=== PATIENT | male | born 1980 | race American Indian/Alaskan Native ===

== ENCOUNTER 2018-06-17 06:47 | Day surgery (SDC) | payer OTHER ==
[~2018-06-17 06:47] MED LIST: Lactated Ringers 1,000 ML IV SCH
[2018-06-17] MEDS ORDERED: Midazolam 1 MG/ML 2 ML SDV ONE (07:26)
[2018-06-17] MEDS ORDERED: Lidocaine 2% 5 ML SDV ONE (07:26)
[2018-06-17] MEDS ORDERED: fentaNYL 100 MCG/2 ML SDV ONE (07:26)
[2018-06-17] MEDS ORDERED: Propofol 200 MG/20 ML SDV ONE ×4 (07:26→08:49)
--- NOTE | 2018-06-17 07:49 | PCM.PREANE ---
Preanesthetic Assessment - Procedure Proposed Procedure: EGD and Colonoscopy - Anesthesia/Transfusion/Family Hx Anesthesia History: Prior Anesthesia Without Reaction Transfusion History: No Prior Transfusion(s) Intubation History: Unknown - Review of Systems General: No Symptoms Pulmonary: No Symptoms Cardiovascular: No Symptoms Gastrointestinal: Diarrhea - Physical Assessment NPO Status Date: 06/16/18 NPO Status Time: 22:00 O2 Sat by Pulse Oximetry: 94 Respiratory Rate: 16 Vital Signs: Last Vital Signs Temp 97.2 F 06/17/18 06:59 Pulse 63 06/17/18 06:59 Resp 16 06/17/18 06:59 BP 123/84 06/17/18 06:59 Pulse Ox 94 L 06/17/18 06:59 Height: 6 ft Weight: 216 lb ASA Class: 2 Mental Status: Alert & Oriented x3 Airway Class: Mallampati = 2 Dentition: Reports: Normal Dentition Thyro-Mental Finger Breadths: 3 Mouth Opening Finger Breadths: 3 ROM/Head Extension: Full Lungs: Clear to Auscultation, Normal Respiratory Effort Cardiovascular: Regular Rate, Regular Rhythm, No Murmurs - Allergies Allergies/Adverse Reactions: Allergies Allergy/AdvReac Type Severity Reaction Status Date / Time No Known Allergies Allergy Verified 06/13/18 10:49 - Blood Blood Available: No Product(s) Available: None - Anesthesia Plan Pre-Op Medication Ordered: None - Acknowledgements Anesthesia Type Planned: MAC Pt an Appropriate Candidate for the Planned Anesthesia: Yes Alternatives and Risks of Anesthesia Discussed w Pt/Guardian: Yes Pt/Guardian Understands and Agrees with Anesthesia Plan: Yes PreAnesthesia Questionnaire Gastrointestinal History: Reports: Chronic Diarrhea, Diverticulosis Musculoskeletal History: Reports: Fracture Other Musculoskeletal History: hx fx right hand - Past Surgical History GI Surgical History: Reports: Colonoscopy Male Surgical History: Reports: Other (See Below) Other Male Surgeries/Procedures: Cystoscopy Musculoskeletal Surgical History: Reports: ORIF Other Musculoskeletal Surgeries/Procedures:: right hand- hardware removed - SUBSTANCE USE Smoking Status *Q: Current Every Day Smoker Tobacco Use Within Last Twelve Months: Cigarettes Recreational Drug Use History: No - HOME MEDS Home Medications: Home Meds L.acidoph,Paracasei, B.lactis [Probiotic] 1 cap PO DAILY 06/13/18 [History] - CURRENT (IN HOUSE) MEDS Current Meds: Current Medications Lactated Ringer's (Ringers, Lactated) 1,000 mls @ 125 mls/hr IV ASDIRECTED MATT Last Admin: 06/17/18 07:06 Dose: 125 mls/hr Discontinued Medications Fentanyl (Sublimaze) Confirm Administered Dose 100 mcg .ROUTE .STK-MED ONE Stop: 06/17/18 07:27 Lidocaine (Xylocaine-Mpf 2%) Confirm Administered Dose 5 ml .ROUTE .STK-MED ONE Stop: 06/17/18 07:27 Midazolam HCl (Versed 1 Mg/Ml) Confirm Administered Dose 2 mg .ROUTE .STK-MED ONE Stop: 06/17/18 07:27 Propofol (Diprivan 20 Ml) Confirm Administered Dose 400 mg .ROUTE .STK-MED ONE Stop: 06/17/18 07:27
[2018-06-17] MEDS ORDERED: Sodium Chloride 0.9% 10 ML Syringe FLUSH PRN (09:06)
[2018-06-17] MEDS ORDERED: Ondansetron 4 MG/2 ML SDV IVPUSH PRN (09:06)
[2018-06-17] MEDS ORDERED: Sodium Chloride 0.9% 2.5 ML Syringe FLUSH PRN (09:06)
--- NOTE | 2018-06-17 09:13 | PCM.OPNOTE ---
- General Post-Op/Procedure Note Date of Surgery/Procedure: 06/17/18 Operative Procedure(s): Esophagogastroduodenoscopy with biopsy. Colonoscopy with cold rectal polypectomy. Pre Op Diagnosis: Progressive heartburn. Unintentional weight loss. Change in bowel habits. Past medical history of colitis. Post-Op Diagnosis: Mild chronic gastritis. Hiatal hernia. Rectal polyp. Anesthesia Technique: MAC (ASA II) Primary Surgeon: Vimal Britton Animal Chiropractor: Juan José Knox Condition: Good Free Text/Narrative:: DICTATION [id number] CPT CODE 66778/11702
[2018-06-17 09:54] VITALS: BP 118/85
--- NOTE | 2018-06-17 10:16 | PCM.POSTAN ---
POST ANESTHESIA ASSESSMENT - MENTAL STATUS Mental Status: Alert, Oriented - RESPIRATORY Respiratory Status: Respiratory Rate WNL, Airway Patent, O2 Saturation Stable - CARDIOVASCULAR CV Status: Pulse Rate WNL, Blood Pressure Stable - GASTROINTESTINAL GI Status: No Symptoms - POST OP HYDRATION Hydration Status: Adequate & Stable
--- NOTE | 2018-06-17 10:21 | PCM48HPAN ---
Post Anesthesia Note - EVALUATION WITHIN 48HRS OF ANESTHETIC Vital Signs in Normal Range: Yes Patient Participated in Evaluation: Yes Respiratory Function Stable: Yes Airway Patent: Yes Cardiovascular Function Stable: Yes Hydration Status Stable: Yes Pain Control Satisfactory: Yes Nausea and Vomiting Control Satisfactory: Yes Mental Status Recovered: Yes Resp Rate: 16 - COMMENTS/OBSERVATIONS Free Text/Narrative:: Post anesthesia assessment was done at 0930 and patient seen before leaving facility.
--- NOTE | 2018-06-18 08:07 | OR ---
SURGEON: Vimal Britton M.D. DATE OF PROCEDURE: 06/17/2018 OPEARTION PERFORMED: Colonoscopy with cold rectal polypectomy. PATTERN CUTTER: Dr. Hancock. ANESTHESIA: MAC. ASA CLASSIFICATION: II. PREOPERATIVE DIAGNOSIS: Change in bowel habits with past medical history of colitis and with recent unintentional weight loss. POSTOPERATIVE DIAGNOSIS: No evidence of inflammatory change. No evidence of diverticulosis. Rectal polyp. DESCRIPTION OF PROCEDURE: The patient was again maintained in the left lateral decubitus position. The colonoscope was inserted into the rectum and advanced without difficulty to the cecum where the colonoscope was retroflexed to visualize the ascending colon from below. The colonoscope was then straightened and slowly withdrawn. The cecum, ascending colon, hepatic flexure, transverse colon, splenic flexure, and descending colon were very well visualized. Sigmoid colon was also very well visualized. I did not see any diverticulosis in this gentleman despite his previous diagnosis, which I believe was a presumptive diagnosis of diverticulitis. No polyps were encountered in the sigmoid colon. Once the colonoscope was withdrawn to the rectum, 1 small polyp was encountered in the rectum. This was removed with the cold biopsy forceps. The colonoscope was retroflexed to view the anal orifice from above and again, no tumors or polyps were seen. There were no acute hemorrhoidal changes. The colonoscope was then straightened, the rectum aspirated, and the colonoscope removed. BARBARA RIDDLE /[id number] TATO
--- NOTE | 2018-06-18 08:10 | OR ---
SURGEON: Vimal Britton M.D. DATE OF PROCEDURE: 06/17/2018 OPERATION PERFORMED: Esophagogastroduodenoscopy with biopsy. [employer] SENIOR OFFICER: Dr. Hancock, PGY2 PREOPERATIVE DIAGNOSIS: Progressive heartburn, nausea, vomiting, and unintentional weight loss. POSTOPERATIVE DIAGNOSIS: Mild chronic gastritis. DESCRIPTION OF PROCEDURE: The patient was taken to the endoscopy room and positioned on the endoscopy table in the left lateral decubitus position. Time-out was called for appropriate identification of the patient and procedure. Monitored anesthesia care was provided. The bite block was placed between the patient's teeth. The gastroscope was inserted into the bite block and advanced without difficulty through the mouth into the esophagus and subsequently through the stomach, into the duodenum where examination was carried out in a retrograde fashion. The duodenum shows no acute inflammatory changes or ulcerations. The stomach does show mild chronic gastritis. No acute ulcerations were noted. The gastroscope was retroflexed to visualize the proximal stomach. No tumors or polyps were seen and there were no acute inflammatory changes. The patient was noted to have a hiatal hernia. The GE junction was well defined and shows no acute inflammatory changes. The esophagus demonstrates fair contractility. No mid or proximal lesions were identified. The vocal cords had been visualized as the scope was inserted and noted to move symmetrically. No vocal cord lesions were identified. The gastroscope was then removed with the patient having tolerated this portion of the procedure well. Following colonoscopy, he was taken to recovery room in stable condition. BARBARA / VENKATESH /[id number]
== END 2018-06-17 10:01 | disposition home or self-care (01) ==
LOC: MW.SDS 06:47
PROVIDERS: ATTEND Surgery
DX: K29.50 Unspecified chronic gastritis without bleeding (principal); K44.9 Diaphragmatic hernia without obstruction or gangrene; R63.4 Abnormal weight loss; R19.4 Change in bowel habit; K62.1 Rectal polyp; F17.210 Nicotine dependence, cigarettes, uncomplicated; Z87.19 Personal history of other diseases of the digestive system
CPT/HCPCS: 43239; 45380; J2250; J2704; J3010; J7120; 88305; 88312

== ENCOUNTER 2020-10-12 03:35 | Emergency (ER) | payer OTHER ==
--- NOTE | 2020-10-12 03:55 | EDM.PDOC ---
ED HPI GENERAL MEDICAL PROBLEM - General Chief Complaint: Respiratory Problem Stated Complaint: LT SIDE HURTS Time Seen by Provider: 10/12/20 03:46 - History of Present Illness INITIAL COMMENTS - FREE TEXT/NARRATIVE: History of present illness: [] Fell out of bed. He has pain in left chest. Severe when he breathes. He feels like he cannot get a deep breath. He is short of breath. He does not have any pressure in his chest. He does not have any diaphoresis. He does not have any nausea. Patient had an injury 2 weeks ago when he fell out of bed and injured left chest. He has had intermittent pain in the left chest since. Its worse since he fell out of bed again tonight. He admits striking for went to bed. Review of systems: As per history of present illness and below otherwise all systems reviewed and negative. Past medical history: As per history of present illness and as reviewed below otherwise noncontributory. Surgical history: As per history of present illness and as reviewed below otherwise nonc ontributory. Social history: No reported history of drug or alcohol abuse. Family history: As per history of present illness and as reviewed below otherwise noncontributory. Physical exam: Constitutional - well developed, well-nourished and in no acute distress HEENT - normocephalic, no evidence of trauma - external nose and mouth normal - no mass in neck and no JVD - mucosae moist EYES - full EOM, PERRL, no icterus - no evidence of inflammation, injection, or drainage Respiratory -left chest wall in the anterior axillary line in the lower part of the chest. No respiratory distress, equal bilateral expansion, lungs clear to auscultation and no abnormal lung sounds Cardiovascular - Regular Rhythm with S1 and S2 appreciated and no murmur, gallop or rub. GI - abdomen soft without distension or organomegaly - normal bowel sounds - no guard or rebound Musculoskeletal no gross deformity of long bones or joints - no tenderness, swelling or edema Neurologic - Alert and oriented times four - CN II-XII grossly intact - motor sensory and coordination symmetrically normal Psychiatric - appropriate mood and affect with normal thought content Hematologic - No petechiae or purpura - mucosa appropriate color and sclera not pale - normal nail bed color and refill Integument - no rash or evidence of trauma - normal turgor Diagnostics: [] Therapeutics: [] Impression: [] Plan: [] Definitive disposition and diagnosis as appropriate pending reevaluation and review of above. left chest area Pain Score (Numeric/FACES): 8 - Related Data Allergies Allergy/AdvReac Type Severity Reaction Status Date / Time No Known Allergies Allergy Verified 10/12/20 03:44 Home Meds: Home Meds . [No Known Home Meds] 10/12/20 [History] Past Medical History Gastrointestinal History: Reports: Chronic Diarrhea, Diverticulosis Musculoskeletal History: Reports: Fracture Other Musculoskeletal History: hx fx right hand - Past Surgical History GI Surgical History: Reports: Colonoscopy Male Surgical History: Reports: Other (See Below) Other Male Surgeries/Procedures: Cystoscopy Musculoskeletal Surgical History: Reports: ORIF Other Musculoskeletal Surgeries/Procedures:: right hand- hardware removed ED ROS GENERAL - Review of Systems Review Of Systems: Comprehensive ROS is negative, except as noted in HPI. ED EXAM, GENERAL - Physical Exam Exam: See Below Free Text/Narrative:: My physical exam is in the HPI #1 Interpretation EKG Interpretation Comments: EKG done at 03 37. Sinus rhythm heart rate 80 CA 167 QT 476 axis 57. QRS normal. There is baseline wander but possible slight ST depression in lead III and minimal ST elevation in V2 and V3. Line QT prolongation. No prior for comparison. Impression no obvious injury. Course - Vital Signs Text/Narrative:: X-ray shows no pneumothorax or displaced rib fracture Last Recorded V/S: Last Vital Signs Temp 35.8 C L 10/12/20 03:40 Pulse 79 10/12/20 03:40 Resp 18 10/12/20 03:40 BP 127/89 10/12/20 03:40 Pulse Ox 96 10/12/20 03:40 - Orders/Labs/Meds Orders: Active Orders 24 hr Category Date Time Status EKG 12 Lead [EKG Documentation Completion] [RC] STAT Care 10/12/20 03:52 Active Ketorolac [Toradol] Med 10/12/20 04:13 Once 30 mg IM ONETIME ONE Departure - Departure Time of Disposition: 04:16 Disposition: Home, Self-Care 01 Condition: Good Clinical Impression: Contusion of left chest wall - Discharge Information Instructions: Blunt Chest Trauma, Contusion, [id number] Referrals: PCP,None [Primary Care Provider] - Forms: ED Department Discharge Additional Instructions: Use [id number] anti-inflammatory medicine or Tylenol for pain. Ibuprofen naproxen Motrin Advil Aleve these are all samples. [facility] - Primary Care [address] [place] [id number] [facility] [address] [place] [address] The following information is given to patients seen in the emergency department who are being discharged to home. This information is to outline your options for follow-up care. We provide all patients seen in our emergency department with a follow-up referral. The need for follow-up, as well as the timing and circumstances, are variable depending upon the specifics of your emergency department visit. If you don't have a primary care physician on staff, we will provide you with a referral. We always advise you to contact your personal physician following an emergency department visit to inform them of the circumstance of the visit and for follow-up with them and/or the need for any referrals to a consulting specialist. The emergency department will also refer you to a specialist when appropriate. This referral assures that you have the opportunity for follow-up care with a specialist. All of these measure are taken in an effort to provide you with optimal care, which includes your follow-up. Under all circumstances we always encourage you to contact your private physic tristan who remains a resource for coordinating your care. When calling for follow- up care, please make the office aware that this follow-up is from your recent emergency room visit. If for any reason you are refused follow-up, please contact the [facility] Emergency Department at and asked to speak to the emergency department charge nurse. Sepsis Event Note (ED) - Evaluation Sepsis Screening Result: No Definite Risk - Focused Exam Vital Signs: Vital Signs Temp Pulse Resp BP Pulse Ox 10/12/20 03:40 35.8 C L 79 18 127/89 96 - My Orders Last 24 Hours: My Active Orders 10/12/20 03:52 EKG 12 Lead [EKG Documentation Completion] [RC] STAT 10/12/20 04:13 Ketorolac [Toradol] 30 mg IM ONETIME ONE - Assessment/Plan Last 24 Hours: My Active Orders 10/12/20 03:52 EKG 12 Lead [EKG Documentation Completion] [RC] STAT 10/12/20 04:13 Ketorolac [Toradol] 30 mg IM ONETIME ONE
--- NOTE | 2020-10-12 04:06 | CR ---
Indication: Pain and SOB Technique: Chest 1 view Comparison: None Findings/Impression: Cardiovascular and mediastinum: Unremarkable cardiomediastinal silhouette for a portable technique. Lungs and pleural space: No lobar consolidation. Slightly increased central interstitial markings. Correlate clinically and follow-up, as indicated. No pleural effusions. No pneumothorax seen. Bones and soft tissues: No significant findings. Dictated by Wayne Champagne MD @ Oct 12 2020 4:02AM Signed by Dr. Wayne Champagne @ Oct 12 2020 4:05AM
[2020-10-12] MEDS ORDERED: Ketorolac 30 MG/ML SDV IM ONE (04:13)
[2020-10-12 05:11] VITALS: BP 114/78; PULSE 68
== END 2020-10-12 04:45 | disposition home or self-care (01) ==
LOC: MW.ED 03:35
DX: S20.212A Contusion of left front wall of thorax, initial encounter (principal); W06.XXXA Fall from bed, initial encounter
CPT/HCPCS: 71045; 93005; 96372; 99285; J1885; 93010; 99283

== ENCOUNTER 2025-07-08 01:38 | Emergency (ER) | payer OTHER ==
[2025-07-08 02:39] VITALS: BP 134/95; PULSE 81
== END 2025-07-08 02:39 | disposition home or self-care (01) ==
LOC: MW.ED 01:38
DX: Z02.83 Encounter for blood-alcohol and blood-drug test (principal); F17.210 Nicotine dependence, cigarettes, uncomplicated
CPT/HCPCS: 36415; 80307; 99282; 99283

== ENCOUNTER 2025-08-06 05:23 | Emergency (ER) | payer OTHER ==
[2025-08-06] MEDS: Diphtheria,Pertussis(Acell),Tetanus Vaccine 0.5 ML Syringe IM ONE (05:56)
[2025-08-06] MEDS ORDERED: Bacitracin Oint 1 GM U/D Packet TOP ONE (07:41)
[2025-08-06 09:10] VITALS: BP 141/99; PULSE 88
== END 2025-08-06 09:10 | disposition home or self-care (01) ==
LOC: MW.ED 05:23
DX: S91.211A Laceration without foreign body of right great toe with damage to nail, initial encounter (principal); F10.120 Alcohol abuse with intoxication, uncomplicated; Y90.9 Presence of alcohol in blood, level not specified; X58.XXXA Exposure to other specified factors, initial encounter; Y93.89 Activity, other specified
CPT/HCPCS: 12002; 73130; 73630; 90471; 90715; 99283; A9270; J2003

== ENCOUNTER 2025-08-13 16:48 | Emergency (ER) | payer OTHER ==
[2025-08-13] MEDS ORDERED: Sodium Chloride 0.9% 2.5 ML Syringe FLUSH PRN (16:49)
[2025-08-13] MEDS ORDERED: Sodium Chloride 0.9% 10 ML Syringe FLUSH PRN (16:49)
[2025-08-13] MEDS: Ondansetron 4 MG/2 ML SDV IVPUSH ONE (17:50)
[2025-08-13] MEDS: Ketorolac 30 MG/ML SDV IVPUSH ONE (17:50)
[2025-08-13 17:59] VITALS: BP 148/108; PULSE 78
[2025-08-13 18:03] LABS: BASOPHILS ABSOLUTE AUTO 0.07 K/uL (0.00-0.20); BASOPHILS PERCENT AUTO 0.6 % (0.0-1.0); EOSINOPHILS ABSOLUTE AUTO 0.26 K/uL (0.00-0.45); EOSINOPHILS PERCENT AUTO 2.2 % (0.0-6.0); IMMATURE GRAN ABSOLUTE AUTO 0.05 K/uL (0.00-0.05); IMMATURE GRAN PERCENT AUTO 0.4 % (0.0-0.4); LYMPHOCYTES ABSOLUTE AUTO 2.01 K/uL (1.00-4.80); LYMPHOCYTES PERCENT AUTO 16.7 % (24.0-44.0); MEAN PLATELET VOLUME 9.0 fL (9.4-12.4); MONOCYTES ABSOLUTE AUTO 1.25 K/uL (0.00-0.80); MONOCYTES PERCENT AUTO 10.4 % (0.0-8.0); NEUTROPHILS ABSOLUTE AUTO 8.42 K/uL (1.80-7.70); NEUTROPHILS PERCENT AUTO 69.7 % (41.0-71.0); NRBC ABSOLUTE 0.00 K/uL (0.00-0.02); NRBC PERCENT 0.0 /100WBC (0.0-0.2); PLATELET COUNT,PLT 229 K/uL (150-400); RED BLOOD CELL COUNT 4.32 M/uL (4.52-5.90); WHITE BLOOD CELL COUNT,WBC 12.06 K/uL (3.9-11.3)
[2025-08-13 18:26] LABS: A/G RATIO 0.9 (0.9-1.6); ALANINE AMINOTRANSFERASE,ALT 81.0 IU/L (14-63); ASPARTATE AMNIOTRANSFERASE,AST 42.0 IU/L (15-37); BILIRUBIN TOTAL 0.4 mg/dL (0.2-1.0); BLOOD UREA NITROGEN,BUN 14.0 mg/dL (7.0-18.0); CARBON DIOXIDE,CO2 26.0 mmol/L (21.0-32.0); CHLORIDE,CL 101.0 mmol/L (98-107); CREATININE 0.9 mg/dL (0.8-1.3); EST CRCL DRUG DOSING (CG) 113.77 mL/min; ESTIMATED GFR 107.0 mL/min (>60); GLUCOSE RANDOM 96.0 mg/dL (74-106); POTASSIUM,K 4.2 mmol/L (3.5-5.1); PROTEIN TOTAL,TP 7.7 g/dL (6.4-8.2); SODIUM,NA 133.0 mmol/L (136-148)
[2025-08-13] MEDS: Ketamine 500 mg/10 ML MDV IV ONE ×2 (18:59→19:53)
[2025-08-13 20:56] LABS: C. TRACHOMATIS BY PCR NOT DETECTED; N. GONORRHOEAE BY PCR NOT DETECTED
== END 2025-08-13 19:24 ==
LOC: MW.ED 16:48
DX: N44.00 Torsion of testis, unspecified (principal); F17.200 Nicotine dependence, unspecified, uncomplicated; Z98.52 Vasectomy status
CPT/HCPCS: 36415; 80053; 83690; 85025; 87491; 87591; 93976; 96361; 96374; 96375; 99152; 99285; J1885; J2270; J2405; J3490; J7030; 76870; 76870-26; 99284; J1171